=== PATIENT | male | born 1965 | race Caucasian/White ===

== ENCOUNTER 2017-09-04 09:06 | Day surgery (SDC) | payer BC, OTHER ==
[~2017-09-04 09:06] MED LIST: Lactated Ringers 1,000 ML IV SCH
[2017-09-04] MEDS ORDERED: fentaNYL 100 MCG/2 ML SDV ONE (11:27)
[2017-09-04] MEDS ORDERED: Midazolam 1 MG/ML 2 ML SDV ONE (11:28)
[2017-09-04] MEDS ORDERED: Propofol 200 MG/20 ML SDV ONE (11:28)
--- NOTE | 2017-09-04 18:01 | OR ---
PREOPERATIVE DIAGNOSIS: Screening colonoscopy, family history of colon cancer- father. POSTOPERATIVE DIAGNOSIS: Normal colonoscopic exam. PLANNED PROCEDURE: Total flexible colonoscopy. PROCEDURE DONE: Total flexible colonoscopy. INDICATION: This is a 51-year-old gentleman who comes in for his first colonoscopic exam. He has a family history of father with colon cancer. He denies any symptomatology. TECHNIQUE: The patient was brought to the endoscopy suite, placed in left lateral decubitus position. He was sedated per [employer] with propofol. The flexible video colonoscope was then passed transanally and under visualization advanced to the cecum. Examination revealed a normal ascending, transverse, descending, sigmoid, and rectal colon. There was no evidence of any polyps, colitis, or other abnormalities and the scope was then withdrawn. The patient tolerated the procedure well. FINAL IMPRESSION: 1. Essentially normal colonoscopic exam. 2. Family history of colon cancer. PLAN: He will be recommended to consider colonic surveillance every 5 years hereafter due to his family history. SCM: 09/04/2017 11:58:23 MODL: 09/04/2017 17:55:20 /[id number]
== END 2017-09-04 13:05 | disposition home or self-care (01) ==
LOC: VM.SDS 09:06
PROVIDERS: ATTEND Surgery
DX: Z12.11 Encounter for screening for malignant neoplasm of colon (principal); E78.5 Hyperlipidemia, unspecified; Z80.0 Family history of malignant neoplasm of digestive organs
CPT/HCPCS: G0105; J2250; J2704; J3010; J7120